=== PATIENT | male | born 1980 | race Asian ===

== ENCOUNTER 2017-06-18 22:11 | Emergency (ER) | payer MEDICAID ==
[~2017-06-18] VITALS: Ht 182.9 cm; Wt 133.2 kg
[2017-06-18 22:16] VITALS: BP 150/108
[2017-06-18] MEDS ORDERED: KETOROLAC 30 MG/1 ML ONE (23:04)
[2017-06-18] MEDS ORDERED: KETOROLAC 30 MG/1 ML IM ONE (23:30)
== END 2017-06-18 23:39 | disposition home or self-care (01) ==
LOC: ED 23:33
DX: R07.89 Other chest pain (principal)
CPT/HCPCS: 71101; 96372; 99284; J1885

== ENCOUNTER 2019-11-27 11:00 | Emergency (ER) | payer MEDICAID ==
[~2019-11-27] VITALS: Ht 182.9 cm; Wt 132.0 kg
[2019-11-27 11:01] VITALS: BP 143/98
[2019-11-27] MEDS ORDERED: HYDROcodone/APAP 5/325 TABLET ONE (11:20)
[2019-11-27] MEDS ORDERED: HYDROcodone/APAP 5/325 TABLET PO ONE (11:30)
--- NOTE | 2019-11-27 11:30 | NUR ---
PT IN BED, ATTACHED TO MONITORS. MEDICATED PER MAR. LABS DRAWN AND SENT. DENIES ANY FURTHER NEEDS OR CONCERNS AT THIS TIME. CALL LIGHT IN REACH.
[2019-11-27 11:42] LABS: BASOPHILS # (AUTO) 0.05 x10^3/uL (0-0.1); BASOPHILS % (AUTO) 1 % (0-1); EOSINOPHILS # (AUTO) 0.15 x10^3/uL (0-0.4); EOSINOPHILS % (AUTO) 2 % (1-7); LYMPHOCYTES # (AUTO) 1.61 x10^3/uL (1-3.4); LYMPHOCYTES % (AUTO) 26 % (22-44); MD NO; MEAN CORPUSCULAR HEMOGLOBIN 33.8 pg (27.5-34.5); MEAN CORPUSCULAR HGB CONC 34.2 g/dL (33.2-36.2); MEAN CORPUSCULAR VOLUME 98.8 fL (81-97); MEAN PLATELET VOLUME 8.7 fL (7.4-10.4); MONOCYTES # (AUTO) 0.31 x10^3/uL (0.2-0.8); MONOCYTES % (AUTO) 5 % (2-9); NEUTROPHILS # (AUTO) 4.19 x10^3/uL (1.8-6.8); NEUTROPHILS % (AUTO) 67 % (42-75); PLATELET COUNT 226 x10^3/uL (130-400); RED BLOOD COUNT 4.46 x10^6/uL (4.38-5.82); RED CELL DISTRIBUTION WIDTH 13.2 % (9.4-14.8)
[2019-11-27 11:43] LABS: HCT (SEDRATE) 44.4 % (39.2-51.8)
== END 2019-11-27 13:25 | disposition home or self-care (01) ==
LOC: ED 12:34
DX: M76.62 Achilles tendinitis, left leg (principal); M79.672 Pain in left foot; F17.200 Nicotine dependence, unspecified, uncomplicated
CPT/HCPCS: 36415; 85025; 85651; 99284